=== PATIENT | male | born 1965 | race Caucasian/White ===

== ENCOUNTER 2020-09-10 15:58 | Emergency (ER) | payer OTHER, SELFPAY ==
[2020-09-10 16:13] VITALS: BP 143/72; PULSE 94; RESP 17; TEMP 36.4; O2SAT 100
[2020-09-10] MEDS: TETANUS,DIPHTHERIA,AC PERTUSSIS ADULT (0.5 ML) BOOSTRIX IM (16:57)
--- NOTE | 2020-09-10 17:24 | ED.GENADULT ---
HPI - General Adult General Chief complaint: Wound/Laceration Stated complaint: thumb laceration Time Seen by Provider: 09/10/20 16:22 Source: patient Mode of arrival: ambulatory Limitations: no limitations History of Present Illness HPI narrative: Patient is a 55-year-old male who presents to emergency department with left thumb laceration that occurred after cutting himself with a drawing box tender at the base of the thumb ulnar aspect patient notes his tetanus is not up-to-date. Patient otherwise presents in no distress has not taken anything for his pain or symptoms Review of Systems Review of Systems: Narrative: CONSTITUTIONAL: Denies fever, chills, or sweats. SKIN: Positive for laceration of the left thumb MUSCULOSKELETAL: Denies decreased range of motion or strength NEUROLOGIC: Denies numbness or tingling PMFSH Surgical History Surgical History History of orthopedic surgery Social History Social History (Updated 09/10/20 @ 17:27 by Tony Fierro PA-C) Smoking status: Former smoker Tobacco type: e-cigarettes/vaping Gender identity (if verbalized by the patient): Female Exam Narrative: Exam Narrative: GENERAL: Well-appearing, well-nourished, and in no acute distress. HEAD: Normocephalic, atraumatic. EYES: PERRLA and EOMI. ENT: Nares clear, no rhinorrhea or epistaxis. Mucous membranes moist. EXTREMITIES: Normal range of motion. No edema. SKIN: Warm, dry, no rash. Laceration of the base of the left thumb measuring 2 cm in length NEURO: No focal deficits. Alert and oriented x3. Neurovascularly intact PSYCH: Normal mood and affect. Course Course Emergency Course: Laceration closed in the emergency department will follow up on an outpatient basis given reasons to return tetanus updated in the emergency department Vital Signs Vital signs: Vital Signs Temperature 97.6 F 09/10/20 16:13 Pulse Rate 94 09/10/20 16:13 Respiratory Rate 17 09/10/20 16:13 Blood Pressure 143/72 H 09/10/20 16:13 Pulse Oximetry 100 09/10/20 16:13 Temperature 97.6 F 09/10/20 16:13 Pulse Rate 94 09/10/20 16:13 Respiratory Rate 17 09/10/20 16:13 Blood Pressure 143/72 H 09/10/20 16:13 Pulse Oximetry 100 09/10/20 16:13 Procedures Laceration Laceration 1: Date: 09/10/20 Time: 17:27 Site: upper extremity Side (If applicable): left Size (cm): 2 Description: linear Depth: simple, single layer Local Anesthetic: lidocaine 1% Pre-repair: wound explored, irrigated and irrigated extensively ====== Skin Level ====== Skin layer closed with: nylon Size (cm): 5-0 Number of sutures: 5 ====== Subcutaneous Layer ====== ====== Muscle Layer ====== ====== Tendon Layer ====== Dressing: Antibiotic ointment nonadhesive 4 x 4 and Coban placed post procedure Medical Decision Making MDM Narrative Medical decision making narrative: Patients injury or pain is consistent with musculoskeletal etiology. No signs of neurological or vascular compromise on exam. Compartments and tisues are soft without signs of compartment syndrome. Pain is felt appropriate for further evaluation on an outpatient basis. Vital Signs Vital Signs: Vital Signs Temperature 97.6 F 09/10/20 16:13 Pulse Rate 94 09/10/20 16:13 Respiratory Rate 17 09/10/20 16:13 Blood Pressure 143/72 H 09/10/20 16:13 Pulse Oximetry 100 09/10/20 16:13 Temperature 97.6 F 09/10/20 16:13 Pulse Rate 94 09/10/20 16:13 Respiratory Rate 17 09/10/20 16:13 Blood Pressure 143/72 H 09/10/20 16:13 Pulse Oximetry 100 09/10/20 16:13 Discharge Plan Discharge Clinical Impression: Laceration Patient Disposition: Home, Self-Care Condition: Stable Instructions: Antibiotic Form, Laceration (ED) Additional Instructions: Keep wound clean and dry. Do not soak, take baths, or
== END 2020-09-10 17:40 | disposition home or self-care (01) ==
PROVIDERS: Emergency Provider Emergency Medicine; PCP Internal Medicine
DX: S61.012A Laceration without foreign body of left thumb without damage to nail, initial encounter (principal); W27.8XXA Contact with other nonpowered hand tool, initial encounter; Z23 Encounter for immunization
CPT/HCPCS: 12001; 90471; 90715; 99282